=== PATIENT | male | born 1990 | race Hispanic/Latino ===

== ENCOUNTER 2018-08-22 21:22 | Emergency (ER) | payer BC ==
[2018-08-22 22:30] LABS: Absolute Lymphocytes (CBC) 4.6 K/uL (0.7-4.9); Absolute Monocytes 0.7 K/uL (0.1-1.3); Absolute Neutrophil 6.1 K/uL (1.8-8.0); Basophils % 0.9 % (0-1.3); Eosinophils % 0.7 % (0-4.4); Hematocrit 45.5 % (39.6-49.0); Lymphocytes % 39.9 % (15.3-44.8); Monocytes % 5.7 % (3.3-12.3)
[2018-08-22 22:33] LABS: Protime INR 1.01
[2018-08-22] MEDS ORDERED: WATER FOR INJ,STERILE 10 ML ONE (22:38)
[2018-08-22] MEDS ORDERED: ZIPRASIDONE MESYLA 20 MG/VIAL IM ONE (22:38)
[2018-08-22 22:49] LABS: ALT/SGPT 53 U/L (12-78); AST/SGOT 26 U/L (15-37); Albumin 4.6 g/dL (3.4-5.0); Alkaline Phosphatase 78 U/L (45-117); BUN Blood Urea Nitrogen 21 mg/dL (7-18); Bicarbonate 25 mmol/L (21-32); Bilirubin Direct 0.2 mg/dL (0-0.2); Bilirubin Total 0.7 mg/dL (0.2-1.0); Glucose Level 109 mg/dL (74-106); Potassium 3.5 mmol/L (3.5-5.1); Protein, Total 8.2 g/dL (6.4-8.2); Sodium Level 142 mmol/L (136-145)
[2018-08-22 23:34] LABS: Barbiturates NEGATIVE (NEGATIVE); Benzodiazepines NEGATIVE (NEGATIVE); Cocaine NEGATIVE (NEGATIVE); METHAMPHETAM NEGATIVE (NEGATIVE); Methadone NEGATIVE (NEGATIVE); Opiates NEGATIVE (NEGATIVE); Phencyclidine NEGATIVE (NEGATIVE); THC Cannibis POSITIVE (NEGATIVE)
[2018-08-22 23:35] LABS: Urine Blood NEGATIVE (NEG); Urine Glucose NEGATIVE (NEG); Urine Protein NEGATIVE (NEG); Urine Specific Gravity 1.025 (1.005-1.030); Urine pH 5.5 (5.0-7.0)
--- NOTE | 2018-08-23 01:12 | ER ---
Nurse's Notes [facility] Name: Ayaz Del Toro Jr Age: 28 yrs Sex: Male : 1990 Arrival Date: 08/22/2018 Time: 21:24 Bed 18 Private MD: Diagnosis: Psychotic disorder with hallucinations due to known physiological condition-Schizophrenia Presentation: 08/22 22:01 Presenting complaint: Mother states: States patient has not been acting like himself; lp1 States he has been talking to himself, seeing things, has moments of rage that has made her concerned he may hurt her or her mother; Has been to a mental health facility in the past for Schizophrenia, hx of meth abuse. Transition of care: patient was not received from another setting of care. Onset of symptoms was August 22, 2018. Risk Assessment: Do you want to hurt yourself or someone else? Other: Patient denies he wants to harm himself or others but states the voices tell him to. Initial Sepsis Screen: Does the patient meet any 2 criteria? No. Patient's initial sepsis screen is negative. Does the patient have a suspected source of infection? No. Patient's initial sepsis screen is negative. Care prior to arrival: None. 22:01 Method Of Arrival: Ambulatory lp1 22:01 Acuity: DEWAYNE 2 lp1 Historical: - Allergies: 22:05 No Known Allergies; lp1 - Home Meds: 22:05 None [Active]; lp1 - PMHx: 22:05 Schizophrenia; lp1 - PSHx: 22:05 None; lp1 - Immunization history:: Adult Immunizations up to date. - Social history:: Smoking status: Patient/guardian denies using tobacco, Patient uses street drugs, marijuana. - Ebola Screening: : No symptoms or risks identified at this time. Screenin:20 Abuse screen: Denies threats or abuse. Nutritional screening: No deficits noted. jb4 Tuberculosis screening: No symptoms or risk factors identified. Fall Risk None identified. Assessment: 22:20 General: Appears in no apparent distress. comfortable, Behavior is cooperative, Talking jb4 to multiple people in the room, verbalizing intention to harm or kill those in the room, and himself. Making multiple sexual gestures to staff, mother, and the voices. . Pain: Denies pain. Neuro: Level of Consciousness is awake, alert, obeys commands, Oriented to person, place, time, situation. Cardiovascular: Patient's skin is warm and dry. Respiratory: Airway is patent Respiratory effort is even, unlabored, Respiratory pattern is regular, symmetrical. GI: No signs and/or symptoms were reported involving the gastrointestinal system. : No signs and/or symptoms were reported regarding the genitourinary system. EENT: No signs and/or symptoms were reported regarding the EENT system. Derm: Skin is intact, Skin is pink, warm \\T\\ dry. Musculoskeletal: Circulation, motion, and sensation intact. 23:30 Reassessment: Patient appears in no apparent distress at this time. Patient and/or jb4 family updated on plan of care and expected duration. Pain level reassessed. Patient is alert, oriented x 3, equal unlabored respirations, skin warm/dry/pink. 08/23 00:31 Reassessment: Patient appears in no apparent distress at this time. Patient and/or jb4 family updated on plan of care and expected duration. Pain level reassessed. Patient is alert, oriented x 3, equal unlabored respirations, skin warm/dry/pink. 00:53 Reassessment: Nurse to Nurse with John Dickinson given. jb4 01:02 Reassessment: Nurse to Nurse given to Camden Kerr. jb4 02:27 Reassessment: Patient appears in no apparent distress at this time. Patient and/or jb4 family updated on plan of care and expected duration. Pain level reassessed. Pt resting in bed with eyes closed respirations even and unlabored. 03:30 Reassessment: Patient appears in no apparent distress at this time. No changes from jb4 previously documented assessment. Patient and/or family updated on plan of care and expected duration. Pain level reassessed. 04:30 Reassessment: Patient appears in no apparent distress at this time. No changes from jb4 previously documented assessment. Patient and/or family updated on plan of care and expected duration. Pain level reassessed. 05:26 Reassessment: Patient appears in no apparent distress at this time. No changes from jb4 previously documented assessment. Patient and/or family updated on plan of care and expected duration. Pain level reassessed. 06:38 Reassessment: Patient appears in no apparent distress at this time. Patient and/or jb4 family updated on plan of care and expected duration. Pain level reassessed. Patient is alert, oriented x 3, equal unlabored respirations, skin warm/dry/pink. PT speaking normally, is pleasant and non threatening at this time, asking politely for things such as water. Given water, pillow, and extra warm blankets. 06:58 Reassessment: Pt taken to receiving facility via mental health deputy. [facility] ed with [facility]. Psych: 08/22 22:05 Subjective: Patient's mood is irritable, Delusions are persecutory, Hallucinations are lp1 auditory, visual, Having thoughts of Patient states "sometimes they tell me to hurt myself or others but I just patiently wait until I can't hear them anymore". Objective: Patient is irritable, restless, Speech is rambling, During triage patient alters speech and tone of voice while speaking Affect is inappropriate. Interventions: Removed personal items and placed in bag. Patient placed in hospital gown. Searched person for dangerous items. 22:15 Suicide Risk Assessment: Sad Person Scale: Sex of patient: Male: Score 1 point. Age of lp1 patient: Score 1 point if patient 15-34. Depression: Score 0 point if signs of depression are not present. Previous Attempt: Score 0 point if patient has not previously attempted suicide. Substance Abuse: Score 1 point if patient abuses alcohol or drugs. Rational Thinking: Score 1 point if patient is lacking rational thinking. Social Support: Score 0 if social support is present/available. Organized Plan: Score 0 if patient did not have an organized plan in place. Relationship: Score 1 point if patient is , , , or for a single male Chronic Sickness: Score 0 point if patient does not have a chronic illness, debilitating, or severe disorder. TOTAL POINTS: If total points are 5-6, proposed clinical action is to strongly consider hospitalization, depending upon confidence in the follow-up arrangement. Implement suicide precautions. Safety Checks: Personal items have been removed. Door is open. Visitors are present. Mother at bedside. Patient uses marijuana. Vital Signs: 22:05 BP 163 / 93; Pulse 100; Resp 18; Pulse Ox 98% on R/A; Weight 104.33 kg; lp1 23:25 BP 119 / 70; Pulse 83; Resp 16; Temp 98.4; Pulse Ox 97% on R/A; lt1 08/23 06:26 BP 124 / 93; Pulse 96; Resp 16; Temp 97.7; Pulse Ox 100% on R/A; ar5 ED Course: 08/22 21:24 Patient arrived in ED. am2 21:40 Sejal Gabriel FNP-C is [facility]. snw 21:40 Gilmar Woods MD is Attending Physician. snw 21:58 Hiren Escudero RN is Primary Nurse. jb4 22:05 Triage completed. lp1 22:07 Arm band placed on left wrist. lp1 22:10 Patient has correct armband on for positive identification. Placed in gown. Bed in low jb4 position. Call light in reach. Side rails up X 1. 22:15 Safety checks: Items removed: yes. Door open/sign placed on door: yes. Family/friend lt1 present: yes. Sitter present: Yes. 22:30 Safety checks: Items removed: yes. Door open/sign placed on door: yes. Family/friend lt1 present: yes. Sitter present: Yes. 22:45 Safety checks: Items removed: yes. Door open/sign placed on door: yes. Family/friend lt1 present: yes. Sitter present: Yes. 23:00 Safety checks: Items removed: yes. Door open/sign placed on door: yes. Family/friend lt1 present: no. Sitter present: Yes. 23:15 Safety checks: Items removed: yes. Door open/sign placed on door: yes. Family/friend ar5 present: no. Sitter present: Yes. 23:30 Safety checks: Items removed: yes. Door open/sign placed on door: yes. Family/friend ar5 present: no. Sitter present: Yes. 23:31 Inserted saline lock: 20 gauge in right antecubital area, using aseptic technique. ar5 23:45 Safety checks: Items removed: yes. Door open/sign placed on door: yes. Family/friend ar5 present: no. Sitter present: Yes. 08/23 00:00 Safety checks: Items removed: yes. Door open/sign placed on door: yes. Family/friend ar5 present: no. Sitter present: Yes. 00:15 Safety checks: Items removed: yes. Door open/sign placed on door: yes. Family/friend ar5 present: no. Sitter present: Yes. 00:30 Safety checks: Items removed: yes. Door open/sign placed on door: yes. Family/friend ar5 present: no. Sitter present: Yes. 00:45 Safety checks: Items removed: yes. Door open/sign placed on door: yes. Family/friend ar5 present: no. Sitter present: Yes. 01:00 Safety checks: Items removed: yes. Door open/sign placed on door: yes. Family/friend ar5 present: no. Sitter present: Yes. 01:15 Safety checks: Items removed: yes. Door open/sign placed on door: yes. Family/friend ar5 present: no. Sitter present: Yes. 01:30 Safety checks: Items removed: yes. Door open/sign placed on door: yes. Family/friend ar5 present: no. Sitter present: Yes. 01:39 called John Dickinson to get the approval information. They asked if the patient is mw2 involuntary I stated he was. She then said " well then I'm going to have to call you back in a minute.". 01:45 Safety checks: Items removed: yes. Door open/sign placed on door: yes. Family/friend ar5 present: no. Sitter present: Yes. 02:00 Safety checks: Items removed: yes. Door open/sign placed on door: yes. Family/friend ar5 present: no. Sitter present: Yes. 02:00 called John Dickinson was on hold for 6 minutes until the phone hung up. mw2 02:15 Safety checks: Items removed: yes. Door open/sign placed on door: yes. Family/friend ar5 present: no. Sitter present: Yes. 02:30 Safety checks: Items removed: yes. Door open/sign placed on door: yes. Family/friend ar5 present: no. Sitter present: Yes. 02:30 called John Dickinson spoke with Marni she told me to call back in about 5 mw2 minutes. 02:45 Safety checks: Items removed: yes. Door open/sign placed on door: yes. Family/friend ar5 present: no. Sitter present: Yes. 03:00 Safety checks: Items removed: yes. Door open/sign placed on door: yes. Family/friend ar5 present: no. Sitter present: Yes. 03:15 Safety checks: Items removed: yes. Door open/sign placed on door: yes. Family/friend ar5 present: no. Sitter present: Yes. 03:15 Called [facility] spoke with Arian he stated " they had 2 male walk ins that mw2 took our patients bed and to call back at 6am to see if there is a bed still available for him.". 03:30 Safety checks: Items removed: yes. Door open/sign placed on door: yes. Family/friend ar5 present: no. Sitter present: Yes. 03:45 Safety checks: Items removed: yes. Door open/sign placed on door: yes. Family/friend ar5 present: no. Sitter present: Yes. 04:00 Safety checks: Items removed: yes. Door open/sign placed on door: yes. Family/friend ar5 present: no. Sitter present: Yes. 04:15 Safety checks: Items removed: yes. Door open/sign placed on door: yes. Family/friend ar5 present: no. Sitter present: Yes. 04:30 Safety checks: Items removed: yes. Door open/sign placed on door: yes. Family/friend ar5 present: no. Sitter present: Yes. 04:45 Safety checks: Items removed: yes. Door open/sign placed on door: yes. Family/friend ar5 present: no. Sitter present: Yes. 05:00 Safety checks: Items removed: yes. Door open/sign placed on door: yes. Family/friend ar5 present: no. Sitter present: Yes. 05:15 Safety checks: Items removed: yes. Door open/sign placed on door: yes. Family/friend ar5 present: no. Sitter present: Yes. 05:30 Safety checks: Items removed: yes. Door open/sign placed on door: yes. Family/friend ar5 present: no. Sitter present: Yes. 05:45 Safety checks: Items removed: yes. Door open/sign placed on door: yes. Family/friend ar5 present: no. Sitter present: Yes. 06:00 Safety checks: Items removed: yes. Door open/sign placed on door: yes. Family/friend ar5 present: no. Sitter present: Yes. 06:15 Safety checks: Items removed: yes. Door open/sign placed on door: yes. Family/friend ar5 present: no. Sitter present: Yes. 06:30 Safety checks: Items removed: yes. Door open/sign placed on door: yes. Family/friend ar5 present: no. Sitter present: Yes. 06:45 Safety checks: Items removed: yes. Door open/sign placed on door: yes. Family/friend ar5 present: no. Sitter present: Yes. 07:00 No provider procedures requiring assistance completed. IV discontinued, intact, jb4 bleeding controlled, No redness/swelling at site. Pressure dressing applied. Administered Medications: 08/22 22:37 Drug: Geodon 20 mg Route: IM; Site: right gluteus; jb4 23:30 Follow up: Response: No adverse reaction jb4 Outcome: 08/23 01:11 ER care complete, transfer ordered by MD. green 07:00 Transferred Note: to [facility] via mental health deputy. jb4 07:00 Condition: stable 07:00 Discharge instructions given to patient, family, Instructed on the need for transfer, Demonstrated understanding of instructions. 07:02 Patient left the ED. 4 Signatures: Sejal Gabriel, LIGHTHOUSE KEEPER-C LIGHTHOUSE KEEPER-Csnw Noemi Pinon RN RN lp1 Hiren Escudero RN RN jb4 Norma Rodriguez am2 Megan Persaud mw2 Carolyn Garcia ar5 Rebecca Brady lt1 Corrections: (The following items were deleted from the chart) 05:28 05:27 Abuse screen: Denies threats or abuse. 4 [facility] 05:28 05:27 Nutritional screening: No deficits noted. 4 4 05:28 05:27 Tuberculosis screening: No symptoms or risk factors identified. 4 4 05:28 05:27 Fall Risk None identified. jb4 jb4
--- NOTE | 2018-08-23 01:12 | EDPHYS ---
Physician Documentation [facility] Name: Ayaz Del Toro Jr Age: 28 yrs Sex: Male : 1990 Arrival Date: 08/22/2018 Time: 21:24 Bed 18 Private MD: ED Physician Gilmar Woods HPI: 08/22 22:39 This 28 yrs old Male presents to ER via Ambulatory with complaints of Psych snw Problem. 22:39 The patient presents to the emergency department with paranoia, psychosis, a history of snw substance abuse. Onset: The symptoms/episode began/occurred 1 year(s) ago. Past psychiatric history: Prior diagnosis: schizophrenia, Psychiatric medications include: none, Primary psychiatric physician: the patient does not have a primary psychiatric physician, the patient has not had a prior suicide gesture, the patient has a previous inpatient psychiatric history, [facility] in [place] initially had pt in rehab for meth but were unable to handle his psych problem and he was placed in their psych area - placed on risperdal but does not like it as it makes him sleepy. Associated signs and symptoms: The patient has no apparent associated signs or symptoms. Severity of symptoms: At their worst the symptoms were incapacitating in the emergency department the symptoms are unchanged. The patient has experienced a previous episode, last year. The patient has not recently seen a physician. Historical: - Allergies: 22:05 No Known Allergies; lp1 - Home Meds: 22:05 None [Active]; lp1 - PMHx: 22:05 Schizophrenia; lp1 - PSHx: 22:05 None; lp1 - Immunization history:: Adult Immunizations up to date. - Social history:: Smoking status: Patient/guardian denies using tobacco, Patient uses street drugs, marijuana. - Ebola Screening: : No symptoms or risks identified at this time. ROS: 22:37 Eyes: Negative for injury, pain, redness, and discharge, ENT: Negative for injury, snw pain, and discharge, Neck: Negative for injury, pain, and swelling, Cardiovascular: Negative for chest pain, palpitations, and edema, Respiratory: Negative for shortness of breath, cough, wheezing, and pleuritic chest pain, Abdomen/GI: Negative for abdominal pain, nausea, vomiting, diarrhea, and constipation, Back: Negative for injury and pain, : Negative for injury, bleeding, discharge, and swelling, MS/Extremity: Negative for injury and deformity, Skin: Negative for injury, rash, and discoloration, Neuro: Negative for headache, weakness, numbness, tingling, and seizure. 22:37 Constitutional: Positive for poor PO intake. 22:37 Psych: Positive for auditory hallucinations, Mom states pt usually can redirect and curb his responses to questions. States he is often inappropriate but redirects and is apologetic. Pt has never been violent. Mom states he is unable to redirect and is becoming more "out there". Exam: 22:35 Head/Face: Normocephalic, atraumatic. Eyes: Pupils equal round and reactive to light, snw extra-ocular motions intact. Lids and lashes normal. Conjunctiva and sclera are non-icteric and not injected. Cornea within normal limits. Periorbital areas with no swelling, redness, or edema. ENT: Nares patent. No nasal discharge, no septal abnormalities noted. Tympanic membranes are normal and external auditory canals are clear. Oropharynx with no redness, swelling, or masses, exudates, or evidence of obstruction, uvula midline. Mucous membranes moist. Neck: Trachea midline, no thyromegaly or masses palpated, and no cervical lymphadenopathy. Supple, full range of motion without nuchal rigidity, or vertebral point tenderness. No Meningismus. Chest/axilla: Normal chest wall appearance and motion. Nontender with no deformity. No lesions are appreciated. Cardiovascular: Regular rate and rhythm with a normal S1 and S2. No gallops, murmurs, or rubs. Normal PMI, no JVD. No pulse deficits. Respiratory: Lungs have equal breath sounds bilaterally, clear to auscultation and percussion. No rales, rhonchi or wheezes noted. No increased work of breathing, no retractions or nasal flaring. Abdomen/GI: Soft, non-tender, with normal bowel sounds. No distension or tympany. No guarding or rebound. No evidence of tenderness throughout. Back: No spinal tenderness. No costovertebral tenderness. Full range of motion. Skin: Warm, dry with normal turgor. Normal color with no rashes, no lesions, and no evidence of cellulitis. MS/ Extremity: Pulses equal, no cyanosis. Neurovascular intact. Full, normal range of motion. Neuro: Awake and alert, GCS 15, oriented to person, place, time, and situation. Cranial nerves II-XII grossly intact. Motor strength 5/5 in all extremities. Sensory grossly intact. Cerebellar exam normal. Normal gait. 22:35 Constitutional: The patient appears alert, awake, jumpy, flight of ideas, hyperverbal/sexual 22:35 Psych: Behavior/mood is aggressive, uncooperative, Affect is animated, Oriented to person, Patient has no thoughts/intents to harm self or others. Judgement / Insight is impaired. Memory is normal. Delusions/hallucinations are present and described as pt speaking in multiple voice variations, +hearing voices. Vital Signs: 22:05 BP 163 / 93; Pulse 100; Resp 18; Pulse Ox 98% on R/A; Weight 104.33 kg; lp1 23:25 BP 119 / 70; Pulse 83; Resp 16; Temp 98.4; Pulse Ox 97% on R/A; lt1 08/23 06:26 BP 124 / 93; Pulse 96; Resp 16; Temp 97.7; Pulse Ox 100% on R/A; ar5 MDM: 08/22 21:58 Patient medically screened. snw 08/23 00:02 Data reviewed: vital signs, nurses notes, lab test result(s). Data interpreted: Pulse snw oximetry: on room air is 97 %. Interpretation: normal. Counseling: I had a detailed discussion with the patient and/or guardian regarding: the historical points, exam findings, and any diagnostic results supporting the discharge/admit diagnosis, the need to transfer to another facility, for higher level of care, [facility] does not immediately have the required specialist. Other consultation: Mental health deputy at 2300, [place] signed 2320.. 01:08 Physician consultation: Dr. Stacy Harry was called at 01:09, was contacted at 01:09, snw regarding regarding transfer, [facility] Dr. Bernard Harry kindly accepts pt in transfer. 08/22 21:58 Order name: Acetaminophen snw 08/22 21:58 Order name: Basic Metabolic Panel snw 08/22 21:58 Order name: CBC with Diff snw 08/22 21:58 Order name: ETOH Level snw 08/22 21:58 Order name: Hepatic Function; Complete Time: 22:57 snw 08/22 21:58 Order name: PT-INR; Complete Time: 22:49 snw 08/22 21:58 Order name: Ptt, Activated; Complete Time: 22:49 snw 08/22 21:58 Order name: Salicylate; Complete Time: 22:49 snw 08/22 21:58 Order name: Urine Drug Screen; Complete Time: 23:50 snw 08/22 22:00 Order name: Acetaminophen Level; Complete Time: 22:57 EDMS 08/22 22:01 Order name: Basic Metabolic Panel; Complete Time: 22:57 EDMS 08/22 22:01 Order name: CBC with Automated Diff; Complete Time: 22:49 EDMS 08/22 22:01 Order name: Alcohol Serum/Plasma; Complete Time: 22:57 EDMS 08/22 23:19 Order name: Urine Dipstick--Ancillary (enter results); Complete Time: 23:50 2 08/22 21:58 Order name: EKG; Complete Time: 22:01 snw 08/22 21:58 Order name: EKG - Nurse/Tech; Complete Time: 22:00 snw 08/22 21:58 Order name: IV Saline Lock; Complete Time: 22:37 snw 08/22 21:58 Order name: Labs collected and sent; Complete Time: 22:37 snw 08/22 21:58 Order name: Urine Dipstick-Ancillary (obtain specimen); Complete Time: 23:14 snw Administered Medications: 08/22 22:37 Drug: Geodon 20 mg Route: IM; Site: right gluteus; 4 23:30 Follow up: Response: No adverse reaction jb4 Disposition: 08/23/18 01:11 Transfer ordered to [facility]. Diagnosis is Psychotic disorder with hallucinations due to known physiological condition - Schizophrenia. - Reason for transfer: Higher level of care. - Accepting physician is Dr. Bernard Harry. - Condition is Stable. - Problem is an acute exacerbation. - Symptoms are unchanged. Addendum: 08/27/2018 07:00 Co-signature as Attending Physician, Gilmar Woods MD. r n Signatures: Dispatcher [employer] EDMS Sejal Gabriel, SORT LINE WORKER-C SORT LINE WORKER-Csnw Gilmar Woods MD MD rn Pena, Laura RN RN lp1 Happy, Hiren, RN RN jb4 Corrections: (The following items were deleted from the chart) 08/23 07:02 01:11 08/23/2018 01:11 Transfer ordered to Psych Facility. Diagnosis is Psychotic jb4 disorder with hallucinations due to known physiological condition - Schizophrenia. Reason for transfer: Higher level of care. Accepting physician is Dr. Bernard Harry. Condition is Stable. Problem is an acute exacerbation. Symptoms are unchanged. snw
--- NOTE | 2018-08-23 06:53 | EKG ---
Test Date: 2018-08-22 Test Time: 21:51:33 Aprn: CHANT MEASUREMENT RESULTS: Intervals: Rate: 90 VA: 136 QRSD: 102 QT: 384 QTc: 469 [place]: P: 55 VA: 136 QRS: 35 T: 40 INTERPRETIVE STATEMENTS: Normal sinus rhythm Possible Left atrial enlargement Borderline ECG No previous ECG available for comparison Electronically Signed On 08-23-18 06:53:09 CDT by Perez Maier
== END 2018-08-23 07:02 ==
LOC: ER 21:22
DX: F20.9 Schizophrenia, unspecified (principal)
CPT/HCPCS: 36415; 80048; 80076; 80307; 80320; 80329; 81003; 85025; 85610; 85730; 93005; 96372; 99285; J3486